=== PATIENT | female | born 1955 | race Asian ===

== ENCOUNTER 2017-02-08 15:10 | Emergency (ER) | payer OTHER ==
[2017-02-08 15:21] VITALS: BP 118/75; PULSE 109; TEMP 98.2; BMI 23.8
== END 2017-02-08 18:47 | disposition left against medical advice (07) ==
LOC: JER 15:10
DX: Z53.21 Procedure and treatment not carried out due to patient leaving prior to being seen by health care provider (principal)
CPT/HCPCS: 99281-25

== ENCOUNTER 2017-02-09 17:18 | Emergency (ER) | payer OTHER ==
[2017-02-09 17:23] VITALS: TEMP 98.2; BMI 22.3
--- NOTE | 2017-02-09 17:47 | PDOC ---
History of Present Illness - General Chief Complaint: Blood Sugar Problem Stated Complaint: FATIGUE Time Seen by Provider: 02/09/17 17:39 - History of Present Illness Initial Comments: 02/09/17 17:39 Ms. Moore is a 61 yo female with a significant past medical history of HTN and DM who presents to the emergency department with a several day history of intense abdominal pain after eating with nausea, both relieved by vomiting, as well as increased glucose (in the 500's) and RUQ abdominal and flank pain. She says that she also had difficulty breathing after she eats but that this too is relieved by vomiting. Further relates that she has had to urinate more than normal recently as well. The patient denies chest pain, shortness of breath, headache and dizziness. Denies fever, chills, diarrhea and constipation. Denies dysuria, urgency and hematuria. Allergies: NKDA Past surgical history: Denies Social history: Denies Past History - Past Medical History Allergies/Adverse Reactions: Allergies Allergy/AdvReac Type Severity Reaction Status Date / Time No Known Allergies Allergy Verified 02/09/17 17:23 Home Medications: Ambulatory Orders Telmisartan/Hydrochlorothiazid [Micardis Hct 40-12.5 mg Tablet] 1 each PO DAILY 01/24/12 Diabetes: Yes HTN: Yes - Psycho/Social/Smoking Cessation Hx Anxiety: No Suicidal Ideation: No Smoking Status: No Smoking History: Never smoked Number of Cigarettes Smoked Daily: 0 Information on smoking cessation initiated: No Hx Alcohol Use: No Drug/Substance Use Hx: No Substance Use Type: None Review of Systems - Review of Systems Comments:: 02/09/17 17:40 GENERAL/CONSTITUTIONAL: No fever or chills. No weakness. HEAD, EYES, EARS, NOSE AND THROAT: No change in vision. No ear pain or discharge. No sore throat. CARDIOVASCULAR: +Some SOB immediately after eating. No chest pain or shortness of breath at rest. RESPIRATORY: No cough, wheezing, or hemoptysis. GASTROINTESTINAL: +Nausea with eating relieved by vomiting. +Pain reported to RUQ as well as on both sides of back. No diarrhea or constipation. GENITOURINARY: No dysuria, frequency, or change in urination. MUSCULOSKELETAL: No joint or muscle swelling or pain. No neck or back pain. SKIN: No rash NEUROLOGIC: No headache, vertigo, loss of consciousness, or change in strength/ sensation. ENDOCRINE: No increased thirst. No abnormal weight change HEMATOLOGIC/LYMPHATIC: No anemia, easy bleeding, or history of blood clots. ALLERGIC/IMMUNOLOGIC: No hives or skin allergy. 02/09/17 18:15 *Physical Exam - Vital Signs Last Vital Signs Temp Pulse Resp BP Pulse Ox 98.2 F 94 H 18 146/81 99 02/09/17 17:19 02/09/17 17:19 02/09/17 17:19 02/09/17 17:19 02/09/17 17:19 - Physical Exam Comments: 02/09/17 17:40 GENERAL: Awake, alert, and fully oriented, in no acute distress HEAD: No signs of trauma, normocephalic, atraumatic EYES: PERRLA, EOMI, sclera anicteric, conjunctiva clear ENT: Auricles normal inspection, hearing grossly normal, nares patent, oropharynx clear without exudates. Moist mucosa NECK: Normal ROM, supple, no lymphadenopathy, JVD, or masses LUNGS: No distress, speaks full sentences, clear to auscultation bilaterally HEART: Regular rate and rhythm, normal S1 and S2, no murmurs, rubs or gallops, peripheral pulses normal and equal bilaterally. ABDOMEN: +RUQ pain to palpation with bilateral flank pain (also to palpation). Soft, nontender, normoactive bowel sounds. No guarding, no rebound. No masses EXTREMITIES: Normal inspection, Normal range of motion, no edema. No clubbing or cyanosis. NEUROLOGICAL: Cranial nerves II through XII grossly intact. Normal speech, normal gait, no focal sensorimotor deficits SKIN: Warm, Dry, normal turgor, no rashes or lesions noted. ED Treatment Course - LABORATORY CBC & Chemistry Diagram: 02/09/17 18:00 02/09/17 18:00 Medical Decision Making - Medical Decision Making 02/09/17 18:24 Patient presents initially complaining of elevated blood sugars in the 500's but soon related that she has been having vomiting with meals for several days. Reports pain to RUQ and bilateral flank pain. Suspect UTI vs. cholecystitis. *DC/Admit/Observation/Transfer Diagnosis at time of Disposition: Hyperglycemia - Discharge Dispostion Disposition: HOME Condition at time of disposition: Improved - Patient Instructions Printed Discharge Instructions: DI for Hyperglycemia -- Adult Additional Instructions: Please return to the ER if you experience worsening or concerning symptoms. You have been seen today for vomiting. Your work up has been negative and your labs are all normal. It is likely your symptoms are due to your high blood sugars over the past few days. It is important that you follow up with your primary care provider to discuss your management of your high blood sugars. Please continue to monitor your sugar.
--- NOTE | 2017-02-09 18:04 | PDOC ---
Attending Attestation - Resident Resident Name: Pablo Vázquez - ED Attending Attestation I have performed the following: I have examined & evaluated the patient, The case was reviewed & discussed with the resident, I agree w/resident's findings & plan, Exceptions are as noted - HPI HPI: 02/09/17 18:01 This is a 61 yo F h/o DM, HTN Pt presents to the ER with initial complaint of hyperglycemia Upon further evaluation, p/w vomiting after each meal Post prandial abdominal pain Bilateral flank pain RUQ pain - Physicial Exam PE: 02/09/17 18:03 Epigastric and RUQ tenderness to palpation RRR CTA bilaterally - Medical Decision Making 02/09/17 18:03 A/p Abdominal pain Will do Labs EKG IV Hydration 02/09/17 19:19 Laboratory Tests 02/09/17 02/09/17 02/09/17 18:00 18:00 18:00 WBC 4.6 Hgb 13.0 Hct 37.6 Plt Count 177 D Neutrophils % 38.7 L Lymphocytes % 47.9 H BUN 17 Creatinine 0.8 Random Glucose 328 H* D Creatine Kinase 67 Troponin I < 0.02 Urine Blood Urine Nitrite Ur Leukocyte Esterase 02/09/17 19:00 WBC Hgb Hct Plt Count Neutrophils % Lymphocytes % BUN Creatinine Random Glucose Creatine Kinase Troponin I Urine Blood 1+ H Urine Nitrite Negative Ur Leukocyte Esterase Negative Heart Score/ECG Review #1 ECG reviewed & interpreted by me at: 19:17 General ECG Interpretation: Sinus Rhythm, Normal Rate, Normal Intervals, No acute ischemic changes
[2017-02-09 18:35] LABS: BASOPHIL 0.9 % (0-2.0); EOSINOPHIL 4.1 % (0-4.5); MCH 30.2 pg (25.7-33.7); MCHC 34.4 g/dl (32.0-36.0); MEAN CELL VOLUME 87.7 fl (80-96); MEAN PLT VOLUME 9.5 fl (7.5-11.1); NEUTROPHILS 38.7 % (42.8-82.8); PLATELET COUNT 177 K/MM3 (134-434); RDW 12.8 % (11.6-15.6); WHITE BLOOD COUNT 4.6 K/mm3 (4.0-10.0)
[2017-02-09 18:54] LABS: URINE APPEARANCE CLEAR; URINE BILIRUBIN NEGATIVE (NEGATIVE); URINE BLOOD 1+ (NEGATIVE); URINE COLOR LTYELLOW; URINE GLUCOSE (UA) 3+ (NEGATIVE); URINE KETONE NEGATIVE (NEGATIVE); URINE LEUK ESTERASE NEGATIVE (NEGATIVE); URINE NITRITE NEGATIVE (NEGATIVE); URINE PROTEIN NEGATIVE (NEGATIVE); URINE UROBILINOGEN NEGATIVE mg/dL (0.2-1.0)
[2017-02-09] MEDS ORDERED: SODIUM CHLORIDE 1,000 ML IV STA (19:02)
[2017-02-09 19:04] LABS: URINE RBC <1 /hpf (0-3); URINE WBC 1 /hpf (3-5)
[2017-02-09 19:10] LABS: ALBUMIN 3.6 g/dl (3.4-5.0); ALK PHOS 82 U/L (45-117); ANION GAP 9 (8-16); BILIRUBIN,TOTAL 0.4 mg/dL (0.2-1.0); CO2 28 mmol/L (21-32); CREATININE 0.8 mg/dL (0.55-1.02); SGOT/AST 17 U/L (15-37); SGPT/ALT 44 U/L (12-78); TOT PROT 7.1 g/dl (6.4-8.2)
[2017-02-09 19:11] LABS: CPK 67 IU/L (26-192)
[2017-02-09 19:12] LABS: TROPONIN I < 0.02 ng/ml (0.00-0.05)
--- NOTE | 2017-02-09 19:14 | PDOC ---
*Physical Exam - Vital Signs Last Vital Signs Temp Pulse Resp BP Pulse Ox 98.2 F 94 H 18 146/81 100 02/09/17 17:19 02/09/17 17:19 02/09/17 17:19 02/09/17 17:19 02/09/17 17:50 - Physical Exam Comments: 02/09/17 19:21 General Appearance: Nourished. No Apparent Distress HEENT: No Pharyngeal Erythema, Tonsillar Exudate, Tonsillar Erythema Respiratory/Chest: Lungs Clear, Normal Breath Sounds. No Crackles, Rales, Rhonchi, Wheezing Cardiovascular: Regular Rhythm, Regular Rate. No Murmur, Gallop/S3, Gallop/S4 Gastrointestinal/Abdominal: Normal Bowel Sounds, Soft, Tenderness to palpation in the RUQ. No Guarding, Rebound Integumentary: Normal Color, Dry, Warm Neurologic: Fully Oriented, Alert, Normal Mood/Affect, Normal Response Heart Score/ECG Review #1 ECG reviewed & interpreted by me at: 19:47 General ECG Interpretation: Sinus Rhythm, Normal Rate (80), Normal Intervals, No acute ischemic changes ED Treatment Course - LABORATORY CBC & Chemistry Diagram: 02/09/17 18:00 02/09/17 18:00 - ADDITIONAL ORDERS Additional order review: Laboratory Results 02/09/17 19:00 Urine Color Ltyellow Urine Appearance Clear Urine pH 5.0 Urine Protein Negative Urine Glucose (UA) 3+ H Urine Ketones Negative Urine Blood 1+ H Urine Nitrite Negative Urine Bilirubin Negative Urine Urobilinogen Negative Ur Leukocyte Esterase Negative Urine RBC <1 Urine WBC 1 02/09/17 18:00 RBC 4.29 MCV 87.7 MCHC 34.4 RDW 12.8 MPV 9.5 Neutrophils % 38.7 L Lymphocytes % 47.9 H Monocytes % 8.4 Eosinophils % 4.1 Basophils % 0.9 Progress Note - Progress Note Progress Note: Received sign out from Dr. Holden. Patient is a 61 year old female with a history of HTN, DM who presents with a several day history of non-bloody, non- billious vomiting following meals with associated RUQ abdominal pain and flank pain. She also notes some increased urination. Work up for cholecystitis, UTI , Pyelonephritis, gastritis, pancreatitis, DKA, HHS. Pending US Medical Decision Making - Medical Decision Making 02/09/17 22:17 Patient's US is negative for gallbladder disease. Work up has been negative. The patient's symptoms are likely due to hyperglycemia causing her vomiting. We stressed the importance of following up with her PCP to adjust her regimen. We emphasized the importance of checking her sugars at home as well. The patient reports clinical improvement and tolerated PO challenge. POC glucose was 150 on recheck. We feel comfortable discharging the patient home at this time. The patient and her family voiced understanding and are agreeable with the plan. *DC/Admit/Observation/Transfer Diagnosis at time of Disposition: Hyperglycemia - Discharge Dispostion Disposition: HOME Condition at time of disposition: Improved Admit: No - Patient Instructions Printed Discharge Instructions: DI for Hyperglycemia -- Adult Additional Instructions: Please return to the ER if you experience worsening or concerning symptoms. You have been seen today for vomiting. Your work up has been negative and your labs are all normal. It is likely your symptoms are due to your high blood sugars over the past few days. It is important that you follow up with your primary care provider to discuss your management of your high blood sugars. Please continue to monitor your sugar.
[2017-02-09 19:15] LABS: GLUCOSE,RANDOM 328 mg/dL (74-106)
[2017-02-09 22:28] VITALS: BP 143/83; PULSE 73
--- NOTE | 2017-02-10 12:18 | EKG ---
Test Reason : Blood Pressure : / mmHG Vent. Rate : 080 BPM Atrial Rate : 080 BPM P-R Int : 144 ms QRS Dur : 082 ms QT Int : 382 ms P-R-T Axes : 025 013 027 degrees QTc Int : 440 ms NORMAL SINUS RHYTHM NORMAL ECG WHEN COMPARED WITH ECG OF 22-OCT-2015 21:16, NO SIGNIFICANT CHANGE WAS FOUND Confirmed by JULIO MACIAS MD ([id number]) on 02/10/2017 12:18:13 PM Referred By: Confirmed By:JULIO MACIAS MD
== END 2017-02-09 22:28 | disposition home or self-care (01) ==
LOC: JER 17:18
PROC: 3E0337Z Introduction of Electrolytic and Water Balance Substance into Peripheral Vein, Percutaneous Approach (ICD-10-PCS; principal; 2017-02-09)
DX: E11.65 Type 2 diabetes mellitus with hyperglycemia (principal)
CPT/HCPCS: 36415; 71020-TC; 76705-TC; 80053; 81003; 81015; 82009; 83690; 84484; 85025; 93005; 93010; 99285-25

== ENCOUNTER 2019-12-30 12:35 | Emergency (ER) | payer SELFPAY ==
[2019-12-30 12:41] VITALS: TEMP 98.5; BMI 26.5
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
[2019-12-30] MEDS ORDERED: DIPHTH,PERTUSS(ACELL),TET 0.5 ML DISP.SYRIN IM ONE ×2 (14:12→14:50)
[2019-12-30 14:20] LABS: BASO % 0.6 % (0-2.0); EOS % 0.9 % (0-4.5); HEMATOCRIT 41.3 % (32.4-45.2); HEMOGLOBIN 13.9 GM/dL (10.7-15.3); LYMPH % 27.4 % (8-40); MCH 30.1 pg (25.7-33.7); MCHC 33.6 g/dl (32.0-36.0); MEAN CELL VOLUME 89.5 fl (80-96); MEAN PLT VOLUME 10.1 fl (7.5-11.1); MONO % 6.8 % (3.8-10.2); NEUT % 64.3 % (42.8-82.8); PLATELET COUNT 234 K/MM3 (134-434); RBC 4.61 M/mm3 (3.60-5.2); WHITE BLOOD COUNT 7.6 K/mm3 (4.0-10.0)
[2019-12-30 14:34] LABS: INR 1.02 (0.83-1.09)
[2019-12-30] MEDS ORDERED: CLINDAMYCIN 600MG PREMIX IVPB 600 MG/50 ML BAG IVPB ONE ×2 (14:40→15:06)
[2019-12-30 14:50] LABS: ALBUMIN 3.8 g/dl (3.4-5.0); ALK PHOS 92 U/L (45-117); ANION GAP 11 MMOL/L (8-16); BILIRUBIN,TOTAL 0.5 mg/dL (0.2-1); BLOOD UREA NITROGEN 12.6 mg/dL (7-18); CALCIUM 9.6 mg/dL (8.5-10.1); CHLORIDE 98 mmol/L (98-107); CO2 27 mmol/L (21-32); CREATININE 0.7 mg/dL (0.55-1.3); GLUCOSE,RANDOM 326 mg/dL (74-106); LIPASE 85 U/L (73-393); MAGNESIUM 1.9 mg/dL (1.8-2.4); PHOSPHOROUS 3.5 mg/dL (2.5-4.9); POTASSIUM 3.8 mmol/L (3.5-5.1); SGOT/AST 16 U/L (15-37); SODIUM 136 mmol/L (136-145); TOT PROT 7.7 g/dl (6.4-8.2)
[2019-12-30 14:52] LABS: SGPT/ALT 32 U/L (13-61)
[2019-12-30] MEDS ORDERED: PIPERACILLIN/TAZOB 3.375 GM 3.375 GM in DEXTROSE 5%-WATER - 50 ML IVPB ONE (15:09)
[2019-12-30] MEDS ORDERED: VANCOMYCIN 1 GM in D5W (PRE-DOCKED) 1,000 MG/250 ML IVPB ONE (15:09)
[2019-12-30] MEDS ORDERED: BACITRACIN 0.9 GM PACKET TP ONE (15:19)
[2019-12-30] MEDS ORDERED: VANCOMYCIN 1 GRAM (PRE-DOCKED) 1,000 MG/250 ML BAG IVPB ONE (15:27)
[2019-12-30] MEDS ORDERED: BACITRACIN 0.9 GM PACKET ONE (15:27)
[2019-12-30 15:47] LABS: URINE APPEARANCE CLEAR; URINE BILIRUBIN NEGATIVE (NEGATIVE); URINE COLOR YELLOW; URINE GLUCOSE (UA) 3+ (NEGATIVE); URINE KETONE TRACE (NEGATIVE); URINE LEUK ESTERASE NEGATIVE (NEGATIVE); URINE NITRITE NEGATIVE (NEGATIVE); URINE PROTEIN NEGATIVE (NEGATIVE); URINE UROBILINOGEN 0.2 mg/dL (0.2-1.0)
[2019-12-30] MEDS ORDERED: SODIUM CHLORIDE 0.9% 1000 ML INFUS.BAG IV ONE (17:03)
[2019-12-30 17:28] VITALS: BP 185/92; PULSE 78
--- NOTE | 2019-12-31 09:37 | EKG ---
Test Reason : Blood Pressure : / mmHG Vent. Rate : 087 BPM Atrial Rate : 087 BPM P-R Int : 140 ms QRS Dur : 082 ms QT Int : 370 ms P-R-T Axes : 049 -03 040 degrees QTc Int : 445 ms NORMAL SINUS RHYTHM MINIMAL VOLTAGE CRITERIA FOR LVH, MAY BE NORMAL VARIANT BORDERLINE ECG WHEN COMPARED WITH ECG OF 09-FEB-2017 19:13, NO SIGNIFICANT CHANGE WAS FOUND Confirmed by Fitz Leger ([id number]) on 12/31/2019 9:37:43 AM Referred By: Confirmed By:Fitz Leger
== END 2019-12-30 16:31 | disposition short-term general hospital (02) ==
LOC: JER 12:35
PROC: 3E03329 Introduction of Other Anti-infective into Peripheral Vein, Percutaneous Approach (ICD-10-PCS; principal; 2019-12-30)
PROC: 3E033GC Introduction of Other Therapeutic Substance into Peripheral Vein, Percutaneous Approach (ICD-10-PCS; 2019-12-30)
PROC: 3E0234Z Introduction of Serum, Toxoid and Vaccine into Muscle, Percutaneous Approach (ICD-10-PCS; 2019-12-30)
DX: M65.849 Other synovitis and tenosynovitis, unspecified hand (principal); L02.512 Cutaneous abscess of left hand; R73.9 Hyperglycemia, unspecified
CPT/HCPCS: 36415; 71045-TC-FY; 73130-TC-LT-FY; 73130-TC-RT-FY; 80053; 81003; 82550; 83036; 83690; 83735; 84100; 84439; 84443; 84484; 85025; 85610; 85730; 87070; 87086; 87186; 87205; 90715; 93005; 93010; 99285-25; U0003